=== PATIENT | male | born 1965 | race Caucasian/White ===

== ENCOUNTER → 2020-05-04 | Emergency (ER) | payer OTHER ==
[~2020-05-04] VITALS: Ht 185.4 cm; Wt 104.3 kg
[~2020-05-04] MED LIST: CIPROFLOXACIN500 M1 PO; KEFLEX500 M1 PO; MEDROLDOSEPACK PO
[2020-05-04 20:32] LABS: ABSOLUTE BASOPHILS 0.1 thou/uL (0.0-0.2); ABSOLUTE EOSINOPHILS 0.1 thou/uL (0.0-0.7); ABSOLUTE LYMPHOCYTES 1.7 thou/uL (0.8-5.3); ABSOLUTE MONOCYTES 0.6 thou/uL (0.0-1.2); BASOPHILS 0.7 %; EOSINOPHILS 1.7 %; HEMATOCRIT 37.3 % (42.0-52.0); HEMOGLOBIN 12.8 gm/dL (14.0-18.0); LYMPHOCYTES 22.7 %; MCH 29.2 pg (26.0-34.0); MCHC 34.3 g/dL (28.0-37.0); MCV 85.1 fL (80.0-100.0); MPV 8.9 fl. (7.2-11.1); NUCLEATED RBCS 0 /100WBC; PLATELET COUNT* 236 thou/uL (150-400); POLYS 66.9 %; RBC 4.38 mil/uL (4.50-6.00); RDW-CV 12.8 % (10.5-14.5); WBC 7.4 thou/uL (4.0-11.0)
[2020-05-04 20:44] LABS: PROTIME 10.8 Seconds (9.20-11.50)
[2020-05-04 20:52] LABS: CALCIUM 9.6 mg/dL (8.5-10.1); CREATININE 1.4 mg/dL (0.6-1.3); POTASSIUM 4.2 mmol/L (3.5-5.1)
[2020-05-04 20:57] LABS: ALBUMIN 3.8 g/dL (3.4-5.0); TOTAL BILIRUBIN 0.8 mg/dL (<0.1-1.0); TOTAL PROTEIN 8.3 g/dL (6.4-8.2)
[2020-05-04 21:01] LABS: URINE BILIRUBIN NEGATIVE (Negative); URINE BLOOD NEGATIVE (Negative); URINE CLARITY CLEAR; URINE COLOR YELLOW; URINE GLUCOSE-RANDOM NEGATIVE (Negative); URINE KETONES NEGATIVE (Negative); URINE LEUKOCYTES-REFLEX 1+ (Negative); URINE NITRITE-REFLEX NEGATIVE (Negative); URINE PROTEIN NEGATIVE (Negative)
[2020-05-04 21:10] LABS: BACTERIA-REFLEX >30 Many /HPF (None Seen); CASTS None Seen /LPF (None Seen); CRYSTALS None Seen /LPF (None Seen); MUCUS 0-3 Light strn/LPF (None Seen); SQUAMOUS 4-10 Moderate /LPF (0-3); URINE RBC 3-10 Few /HPF (0-2); URINE WBC-REFLEX >25 Many /HPF (0-5); WBC CLUMPS Moderate (None Seen)
[2020-05-04 23:37] VITALS: BP 118/75
--- NOTE | 2020-05-05 14:58 | EKG ---
[place] [address] ELECTROCARDIOGRAM REPORT Name: FOREST PEREZ Room: [facility] M.R.#: [id number] Admission: Attend Phys: Discharge: Date of : 67 Date of Service: 05/04/202009 Report #: [id number] THIS REPORT FOR: //name// [facility] ED Test Date: 2020-05-04 Test Time: 20:10:11 Pat Name: FOREST PEREZ Department: Room: Gender: M Media Relations Intern: [place] : 1965 Requested By: Denise Emanuel Order Number: [id number] MD: Jose Wooten Measurements Intervals [place] Rate: 82 P: 68 IN: 160 QRS: -13 QRSD: 88 T: 17 QT: 384 QTc: 449 Interpretive Statements Sinus rhythm Baseline wander in lead(s) II No previous ECG available for comparison Electronically Signed On 05-05-2020 14:58:33 CDT by Jose Wooten [email or web address] <ELECTRONICALLY SIGNED> By: Jose Wooten MD, [facility] 05/05/20 1458 09 09 Jose Wooten MD, FACC /EPI
== END ==
LOC: M.ERS 18:48
PROVIDERS: Personal Emergency Response Attendant
DX: N39.0 Urinary tract infection, site not specified (principal); M25.472 Effusion, left ankle; M25.471 Effusion, right ankle; M25.475 Effusion, left foot; M25.474 Effusion, right foot